=== PATIENT | female | born 1950 | race Caucasian/White ===

== ENCOUNTER 2016-12-09 12:11 | Emergency (ER) | payer OTHER ==
[~2016-12-09] VITALS: Ht 152.4 cm; Wt 63.5 kg
[2016-12-09 13:00] LABS: BASOPHIL % 0.5 % (0-2); PLATELET COUNT 272 x10^3mcL (130-400); RED CELL DISTRIBUTION WIDTH 13.4 % (11.5-14.5)
[2016-12-09 13:11] LABS: CALCIUM 10.5 mg/dL (8.5-10.1); CREATININE SERUM 2.9 mg/dL (0.6-1.0); POTASSIUM SERUM 3.9 mmol/L (3.5-5.1)
[2016-12-09 13:14] LABS: ALBUMIN 3.9 g/dL (3.4-5.0); BILIRUBIN TOTAL 0.3 mg/dL (0.20-1.00); TOTAL PROTEIN, SERUM 7.5 g/dL (6.4-8.2)
[2016-12-09 16:23] VITALS: BP 114/51
== END 2016-12-09 16:22 | disposition home or self-care (01) ==
LOC: ED 12:11
PROVIDERS: Emergency Medicine
DX: J45.901 Unspecified asthma with (acute) exacerbation (principal); E11.9 Type 2 diabetes mellitus without complications; I10 Essential (primary) hypertension; G47.00 Insomnia, unspecified; M19.90 Unspecified osteoarthritis, unspecified site; Z79.84 Long term (current) use of oral hypoglycemic drugs
CPT/HCPCS: 83880; J2930; J7613; J7644; Q0092

== ENCOUNTER 2017-02-20 20:41 | Emergency (ER) | payer OTHER ==
[2017-02-20 20:49] VITALS: BP 167/95
== END 2017-02-20 22:06 | disposition home or self-care (01) ==
LOC: ED 20:41
DX: G89.29 Other chronic pain (principal); M25.562 Pain in left knee; M25.561 Pain in right knee; I10 Essential (primary) hypertension; M19.90 Unspecified osteoarthritis, unspecified site; E11.9 Type 2 diabetes mellitus without complications

== ENCOUNTER 2018-01-28 19:26 | Emergency (ER) | payer OTHER ==
[~2018-01-28] VITALS: Ht 152.4 cm; Wt 71.2 kg
[2018-01-28 19:28] VITALS: Ht 152.4 cm; Wt 71.2 kg
[2018-01-28 21:19] VITALS: BP 181/92
== END 2018-01-28 21:19 | disposition home or self-care (01) ==
LOC: ED 19:26
DX: S83.92XA Sprain of unspecified site of left knee, initial encounter (principal); I10 Essential (primary) hypertension; E11.9 Type 2 diabetes mellitus without complications; M19.90 Unspecified osteoarthritis, unspecified site; Z90.710 Acquired absence of both cervix and uterus; X58.XXXA Exposure to other specified factors, initial encounter; Y93.89 Activity, other specified; Y92.89 Other specified places as the place of occurrence of the external cause; Y99.8 Other external cause status

== ENCOUNTER 2018-06-05 19:26 | Emergency (ER) | payer MEDICARE, OTHER ==
[~2018-06-05] VITALS: Ht 160 cm; Wt 69.9 kg
[2018-06-05 19:34] VITALS: Ht 160 cm; Wt 69.9 kg
[2018-06-05 20:40] VITALS: BP 177/76
== END 2018-06-05 20:40 | disposition home or self-care (01) ==
LOC: ED 19:26
DX: L40.9 Psoriasis, unspecified (principal)

== ENCOUNTER 2018-07-15 18:06 | Emergency (ER) | payer MEDICARE, OTHER ==
[~2018-07-15] VITALS: Ht 157.5 cm; Wt 53.1 kg
[2018-07-15 18:23] VITALS: Ht 157.5 cm; Wt 53.1 kg
[2018-07-15 18:49] VITALS: BP 156/104
== END 2018-07-15 18:49 | disposition home or self-care (01) ==
LOC: ED 18:06
DX: I10 Essential (primary) hypertension (principal); E11.9 Type 2 diabetes mellitus without complications; J45.909 Unspecified asthma, uncomplicated; Z76.0 Encounter for issue of repeat prescription; Z13.89 Encounter for screening for other disorder; Z90.710 Acquired absence of both cervix and uterus; Z98.890 Other specified postprocedural states